=== PATIENT | female | born 2000 | race American Indian/Alaskan Native ===

== ENCOUNTER 2019-07-06 09:49 | Emergency (ER) | payer MEDICAID, OTHER ==
[2019-07-06] MEDS ORDERED: ONDANSETRON 4 MG/2 ML INJ IV ONE (10:16)
[2019-07-06] MEDS ORDERED: SODIUM CHLORIDE 0.9% 1000 ML 1,000 ML IV ONE (10:16)
[2019-07-06] MEDS ORDERED: MORPHINE 4 MG/1 ML INJ IV ONE (10:16)
--- NOTE | 2019-07-06 10:20 | Emergency Department Report ---
ED Abdominal Pain HPI - General Chief Complaint: Abdominal Pain Stated Complaint: ABD PAIN Time Seen by Provider: 07/06/19 10:04 Source: patient, family, EMS Mode of arrival: Ambulatory Limitations: No Limitations - History of Present Illness Initial Comments: Patient is 19 years old female with no significant past medical history. Patient presented to the ER complaining of diffuse abdominal pain, crampy in nature associated with nausea and vomiting for the last 2 days. Patient denied any fever or chills. Patient denied any diarrhea. Patient is also complaining off abscess to the right groin area. MD Complaint: abdominal pain -: Last night Location: diffuse Radiation: none Migration to: no migration Severity: moderate Severity scale (0 -10): 7 Quality: sharp Consistency: constant Associated Symptoms: denies other symptoms - Related Data Allergies Allergy/AdvReac Type Severity Reaction Status Date / Time No Known Allergies Allergy Unverified 07/06/19 10:00 ED Review of Systems ROS: Stated complaint: ABD PAIN Other details as noted in HPI Comment: All other systems reviewed and negative Constitutional: denies: chills Respiratory: denies: cough, shortness of breath Cardiovascular: denies: chest pain, palpitations Gastrointestinal: abdominal pain, nausea, vomiting. denies: diarrhea, constipation, hematemesis, hematochezia Musculoskeletal: denies: back pain Neurological: denies: headache, weakness, numbness, paresthesias, confusion ED Past Medical Hx - Past Medical History Previous Medical History?: Yes - Surgical History Past Surgical History?: Yes Hx Cholecystectomy: Yes - Social History Smoking Status: Current Some Day Smoker Substance Use Type: Alcohol, Marijuana ED Physical Exam - General Limitations: No Limitations General appearance: alert, in no apparent distress - Head Head exam: Present: atraumatic, normocephalic, normal inspection - Eye Eye exam: Present: normal appearance - ENT ENT exam: Present: mucous membranes dry - Neck Neck exam: Present: normal inspection, full ROM. Absent: tenderness, meningismus, lymphadenopathy, thyromegaly - Respiratory Respiratory exam: Present: normal lung sounds bilaterally - Cardiovascular Cardiovascular Exam: Present: regular rate, normal rhythm, normal heart sounds - GI/Abdominal GI/Abdominal exam: Present: soft, normal bowel sounds. Absent: distended, tenderness, guarding, rebound, rigid, organomegaly, mass, bruit, pulsatile mass, hernia - Extremities Exam Extremities exam: Present: normal inspection, full ROM, normal capillary refill. Absent: tenderness, pedal edema, joint swelling, calf tenderness - Back Exam Back exam: Present: normal inspection, full ROM. Absent: CVA tenderness (R), CVA tenderness (L), muscle spasm, paraspinal tenderness, vertebral tenderness - Neurological Exam Neurological exam: Present: alert, oriented X3, CN II-XII intact, normal gait, reflexes normal - Psychiatric Psychiatric exam: Present: normal mood - Skin Skin exam: Present: warm, intact, normal color ED Course Vital Signs 07/06/19 07/06/19 07/06/19 09:57 11:12 14:10 Temperature 97.3 F L 97.7 F Pulse Rate 78 74 Respiratory 18 16 17 Rate Blood Pressure 136/96 Blood Pressure 114/64 [Left] O2 Sat by Pulse 100 98 Oximetry - I & D Groin Type of Procedure: Simple Blade Size: 11 I & D Procedure: betadine prep, sterile drapes applied, sterile dressing applied, gauze wick placed ED Medical Decision Making - Lab Data Result diagrams: 07/06/19 10:36 07/06/19 11:49 - Radiology Data Radiology results: report reviewed - Medical Decision Making Patient is 19 years old female with no significant past medical history. Patient presented to the ER complaining of diffuse abdominal pain, crampy in nature associated with nausea and vomiting for the last 2 days. Patient denied any fever or chills. Patient denied any diarrhea. Patient is also complaining off abscess to the right groin area. Labs reviewed and showed a slightly elevated blood blood cells. Patient had a CT abdomen and pelvis was IV contrast with no significant abnormality except for the right groin abscess. Abscesses drained. Patient started on Bactrim and advised to follow-up with her primary care physician in the next 2-3 days and to return to the ER if symptoms are not improved. Critical care attestation.: If time is entered above; I have spent that time in minutes in the direct care of this critically ill patient, excluding procedure time. ED Disposition Clinical Impression: Abdominal pain, Vomiting, Abscess, groin Disposition: TO HOME OR SELFCARE Is pt being admited?: No Condition: Stable Instructions: Abscess Incision and Drainage (ED), Abdominal Pain (ED) Referrals: PRIMARY CARE, [Primary Care Provider] - 3-5 Days
[2019-07-06 10:57] LABS: Basophils # (Auto) 0.1 K/mm3 (0.0-0.1); Basophils % (Auto) 0.6 % (0.0-1.8); Eosinophils % (Auto) 0.1 % (0.0-4.3); Hematocrit 47.8 % (30.3-42.9); Hemoglobin 15.2 gm/dl (10.1-14.3); Lymphocytes % (Auto) 8.4 % (13.4-35.0); Mean Corpuscular HGB Conc 32 % (30-34); Mean Corpuscular Volume 83 fl (79-97); Monocytes # (Auto) 0.5 K/mm3 (0.0-0.8); Monocytes % (Auto) 3.9 % (0.0-7.3); Platelet Count 359 K/mm3 (140-440); Red Blood Count 5.74 M/mm3 (3.65-5.03); Red Cell Distribution Width 13.5 % (13.2-15.2)
[2019-07-06 12:02] LABS: Bacteria,Urine 1+ /HPF (Negative); Bilirubin,Urine NEG (Negative); Blood,Urine NEG (Negative); Color,Urine Amber (Yellow); Mucus,Urine 3+ /HPF
[2019-07-06 12:56] LABS: Alanine Aminotransferase 12 units/L (7-56); Albumin 4.7 g/dL (3.9-5); BUN/Creatinine Ratio 12; Blood Urea Nitrogen 6 mg/dL (7-17); Calcium 9.3 mg/dL (8.4-10.2); Hemolysis Index 78
[2019-07-06 12:58] LABS: Bilirubin,Direct < 0.2 mg/dL (0-0.2)
[2019-07-06 14:11] VITALS: BP 114/64
--- NOTE | 2019-07-06 14:56 | Cat Scan Report ---
CT ABDOMEN AND PELVIS WITH CONTRAST INDICATION: Generalized abdominal pain. COMPARISON: No relevant prior imaging study available. TECHNIQUE: Axial, coronal and sagittal CT imaging of the abdomen and pelvis was performed after inje ction of 100 mL Omnipaque [address] scans at this location are performed using CT dose re duction for ALARA by means of automated exposure control. FINDINGS: LOWER CHEST: No significant abnormality. LIVER: No significant abnormality. BILIARY: The gallbladder is surgically absent. No biliary ductal dilatation is seen. PANCREAS: No significant abnormality. SPLEEN: No significant abnormality. ADRENALS: No significant abnormality. KIDNEYS AND URETERS: No significant abnormality. GI TRACT: No significant abnormality of the stomach, small bowel or colon. Unremarkable appendix. PERITONEUM: No free fluid. No free air. No fluid collection. LYMPH NODES: No significant adenopathy. VASCULATURE: No significant abnormality. URINARY BLADDER: No significant abnormality. REPRODUCTIVE ORGANS: No significant abnormality. ADDITIONAL FINDINGS: Inflammation is seen along the right inguinal subcutaneous tissues with a fluid collection versus abscess seen immediately deep to the skin measuring 2.3 x 2.3 cm on image 78 of ser ies 4. SKELETAL SYSTEM: No significant abnormality. IMPRESSION: 1. Possible superficial right inguinal abscess as above. 2. No other acute abnormality of the abdomen or pelvis. Signer Name: Nicholas Valentine MD Signed: 07/06/2019 2:52 PM Workstation Name: [email or web address]
[2019-07-06] MEDS ORDERED: METOCLOPRAMIDE 10 MG/2 ML INJ ONE (15:47)
[2019-07-06] MEDS ORDERED: METOCLOPRAMIDE 10 MG/2 ML INJ IV ONE (15:50)
[2019-07-06] MEDS ORDERED: LIDOCAINE (2%) 20 MG/1 ML VIAL 20 ML MDV INFILTRATI ONE ×2 (16:46→16:48)
== END 2019-07-06 18:00 | disposition home or self-care (01) ==
LOC: ED 09:49
DX: L02.214 Cutaneous abscess of groin (principal); R11.2 Nausea with vomiting, unspecified; F17.200 Nicotine dependence, unspecified, uncomplicated; F12.10 Cannabis abuse, uncomplicated; Z90.49 Acquired absence of other specified parts of digestive tract
CPT/HCPCS: 10060; 36415; 74177; 80048; 80076; 81001; 83690; 84703; 85025; 96361; 96374; 96375; 99284; J2270; J2405; J2765; J7030; Q9967